=== PATIENT | female | born 1980 ===

== ENCOUNTER 2017-02-25 16:53 | Observation (INO) | payer BC ==
[2017-02-25 17:12] VITALS: TEMP 98.5; BMI 25.4
--- NOTE | 2017-02-25 17:37 | ED PDOC ---
"Arrival/HPI - General Chief Complaint: Abdominal Pain Time Seen by Provider: 02/25/17 16:54 Historian: Patient - History of Present Illness Narrative History of Present Illness (Text): 02/25/17 17:24 A 36 year old female, whose past medical history includes Kidney disease (does not take any medication), is sent from [facility] for right lower suprapubic and lower quadrant pain. Patient reports the pain has been presents for the past week but within the last 24 hour it has worsened. Pain shoots straight back to the back. Patient mentions 2 episodes of diarrhea but states it might be due to eating cheese because she has Lactose Intolerance. She notes some nausea but denies any vomiting, appetite change, or other complaints at this time. PMD: Dr. Jesus WEINERN: Dr. Galaviz Time/Duration: 1 week Symptom Onset: Gradual Symptom Course: Worsening Quality: Other Activities at Onset: Rest Context: Home Past Medical History - Provider Review Nursing Documentation Reviewed: Yes - Cardiac Hx Cardiac Disorders: No - Pulmonary Hx Respiratory Disorders: No - Neurological Hx Neurological Disorder: No - HEENT Hx HEENT Disorder: No - Renal Hx Renal Disorder: Yes Other/Comment: kidney disease - Endocrine/Metabolic Hx Endocrine Disorders: No - Hematological/Oncological Hx Blood Disorders: No - Integumentary Hx Dermatological Disorder: No - Musculoskeletal/Rheumatological Hx Musculoskeletal Disorders: No - Gastrointestinal Hx Gastrointestinal Disorders: No - Psychiatric Hx Substance Use: No - Surgical History Hx Tonsillectomy: Yes - Anesthesia Hx Anesthesia: Yes Hx Anesthesia Reactions: No Hx Malignant Hyperthermia: No Family/Social History - Physician Review Nursing Documentation Reviewed: Yes Family/Social History: Unknown Family HX Smoking Status: Never Smoked Hx Alcohol Use: No Hx Substance Use: No Allergies/Home Meds Allergies/Adverse Reactions: Allergies No Known Allergies Allergy (Verified 02/25/17 17:12) Review of Systems - Physician Review All systems were reviewed & negative as marked: Yes - Review of Systems Constitutional: absent: Fevers Gastrointestinal: Diarrhea, Nausea, Other (right suprapubic pain). absent: Vomiting Genitourinary Female: absent: Dysuria, Frequency, Hematuria, Urine Output Changes, Vaginal Bleeding, Vaginal Discharge Musculoskeletal: Back Pain Physical Exam Vital Signs Reviewed: Yes Vital Signs Temp Pulse Resp BP Pulse Ox 02/25/17 21:41 60 16 106/68 100 02/25/17 19:38 60 116/73 100 02/25/17 17:04 98.5 F 77 18 113/70 99 Temperature: Afebrile Blood Pressure: Normal Pulse: Regular Respiratory Rate: Normal Appearance: Positive for: Well-Appearing, Non-Toxic, Comfortable Pain Distress: None Mental Status: Positive for: Alert and Oriented X 3 - Systems Exam Head: Present: Atraumatic, Normocephalic Pupils: Present: PERRL Extroacular Muscles: Present: EOMI Conjunctiva: Present: Normal Mouth: Present: Moist Mucous Membranes Neck: Present: Normal Range of Motion Respiratory/Chest: Present: Clear to Auscultation, Good Air Exchange. No: Respiratory Distress, Accessory Muscle Use Cardiovascular: Present: Regular Rate and Rhythm, Normal S1, S2. No: Murmurs Abdomen: Present: Tenderness (right suprapubic and lower quadrant tenderness with palpation), Normal Bowel Sounds. No: Distention, Peritoneal Signs, Rebound , Guarding Genitourinary/Pelvic Exam: Present: Normal External Genitalia, Adenexal Tenderness (mild right adenexal tenderness), Other (Female wrapper counter (Scribe - Dimpal Carrillo) present). No: Vaginal Discharge, Vaginal Bleeding, Adenexal Mass Back: Present: Normal Inspection Upper Extremity: Present: Normal Inspection. No: Cyanosis, Edema Lower Extremity: Present: Normal Inspection. No: Edema Neurological: Present: GCS=15, CN II-XII Intact, Speech Normal Skin: Present: Warm, Dry, Normal Color. No: Rashes Psychiatric: Present: Alert, Oriented x 3, Normal Insight, Normal Concentration Medical Decision Making ED Course and Treatment: 02/25/17 17:24 Impression: A 36 year old female with right lower quadrant and suprapubic pain. On physical examination patient has right lower quadrant and suprapubic tenderness with palpation. On examination patient has mild adnexal tenderness. Differential Diagnosis include but are not limited to: ovarian cyst vs. Plan: -- Transvaginal ultrasound -- Labs -- Urinalysis -- IV Fluids -- Reassess and disposition Progress Notes: - Lab Interpretations Lab Results: 02/25/17 18:05 02/25/17 18:05 Lab Results 02/25/17 18:05: Sodium 139, Potassium 4.1, Chloride 105, Carbon Dioxide 26, Anion Gap 12, BUN 20, Creatinine 0.8, Est GFR ( Amer) > 60, Est GFR (Non- Af Amer) > 60, Random Glucose 87, Calcium 9.6, Magnesium 2.2, Total Bilirubin 0.5, Direct Bilirubin 0.2, AST 25, ALT 30, Alkaline Phosphatase 64, Total Protein 7.1, Albumin 4.2, Globulin 2.9, Albumin/Globulin Ratio 1.4, Lipase 67 02/25/17 18:05: WBC 8.8, RBC 4.83, Hgb 13.8, Hct 41.7, MCV 86.3, MCH 28.6, MCHC 33.1, RDW 13.1, Plt Count 231, MPV 11.7 H, Gran % 52.7, Lymph % (Auto) 36.4 H, Cannon % (Auto) 5.8, Eos % (Auto) 4.8, Baso % (Auto) 0.3, Gran # 4.64, Lymph # 3.2 , Cannon # 0.5, Eos # 0.4, Baso # 0.03 02/25/17 17:40: Urine Color Yellow, Urine Appearance Clear, Urine pH 6.5, Ur Specific Mobile 1.020, Urine Protein Negative, Urine Glucose (UA) Negative, Urine Ketones Trace H, Urine Blood Negative, Urine Nitrate Negative, Urine Bilirubin Negative, Urine Urobilinogen 0.2, Ur Leukocyte Esterase Negative, Urine HCG, Qual Negative - RAD Interpretation Radiology Orders: 02/25/17 17:42 TRANSVAGINAL [US] Stat 02/25/17 19:34 ABD & PELVIS PO CONTRAST ONLY [CT] Stat - Medication Orders Current Medication Orders: Discontinued Medications Acetaminophen (Tylenol 325mg Tab) 975 mg PO STAT STA Stop: 02/25/17 21:47 Last Admin: 02/25/17 21:58 Dose: 975 mg Sodium Chloride (Sodium Chloride 0.9%) 1,000 mls @ 999 mls/hr IV .Q1H1M STA Stop: 02/25/17 18:44 Last Admin: 02/25/17 18:07 Dose: 999 mls/hr Iohexol (Omnipaque 240 (50 Ml)) Confirm Administered Dose 50 ml .ROUTE .STK-MED ONE Stop: 02/25/17 19:14 Iohexol (Omnipaque 350 100 Ml) Confirm Administered Dose 350 mg .ROUTE .STK-MED ONE Stop: 02/25/17 19:14 Ketorolac Tromethamine (Toradol) 30 mg IVP STAT STA Stop: 02/25/17 19:24 Last Admin: 02/25/17 19:34 Dose: Not Given Non-Admin Reason: Patient Refused ED OBSERVATION Discharge: Yes Date of observation admission: 02/25/17 Time of observation admission: 17:35 - Observation admission statement Patient is being placed in observation because:: She has abdominal pain and will need to be observed for further workup and determination of diagnosis and treatment. - Goals of Observation Goals of observation are:: Discern diagnosis, improve symptoms, and determine disposition. - Progress Note Progress Note: 02/25/17 18:50 Patient is in ultrasound. 02/25/17 19:30 Toradol was ordered for patient, but patient says she cannot take a nsaid due to having minimal change renal disease. Sono results: FINDINGS: Uterus/cervix: Nabothian cyst noted in the cervix. Endometrial thickness measures up to 1 cm. No myometrial mass. Right ovary: Normal in size. Vascular flow is present. Free fluid is noted in the adnexal region Left ovary: Normal in size. Vascular flow is present.Free fluid is noted in the adnexal region Free fluid: See above. IMPRESSION: Normal sized ovaries with vascular flow. Small amount of free fluid in bilateral adnexa regions, right greater than left. Correlate clinically 02/25/17 19:34 CT changed to oral contrast only to avoid iv contrast for her renal disease. 02/25/17 20:30 Results of sono discussed with patient. Free fluid may be related to possible recent cyst rupture, but will still need to rule out appendicitis. Patient appears comfortable. 02/25/17 21:47 Patient is more uncomfortable again. Will give tylenol. CT abd/pelvis is pending. 02/25/17 22:54 CT scan results: FINDINGS: Lower thorax: <No significant pleural effusions.> ABDOMEN: Liver: Unremarkable. Gallbladder and bile ducts: Unremarkable. No calcified stones. No ductal dilation. Pancreas: Unremarkable. No ductal dilation. Spleen: Unremarkable. No splenomegaly. Adrenals: Unremarkable. No mass. Kidneys and ureters: 2 mm left nephrolithiasis. No hydronephrosis. Stomach and bowel: Unremarkable. No dilated bowel loops. Appendix: No findings to suggest acute appendicitis. PELVIS: Bladder: Unremarkable. No stones. Reproductive: Unremarkable as visualized. KALE GONZALES | Preliminary Radiology Report MAIL HANDLER EQUIPMENT OPERATOR (QA) DISCREPANCY? If there is a discrepancy between the preliminary and final interpretation, please notify [facility] via [email or web address]. If you do not have access to our QA portal, call our QA team at [phone] CONFIDENTIALITY STATEMENT This report is intended only for the use of the referring physician, and only in accordance with law, If you received this in error, call [phone] Page 2 of 2 ABDOMEN and PELVIS: Intraperitoneal space: Unremarkable. No free air. No significant fluid collection. Bones/joints: No acute fracture. No dislocation. Soft tissues: Unremarkable. Vasculature: Unremarkable. No abdominal aortic aneurysm. Lymph nodes: Unremarkable. No enlarged lymph nodes. IMPRESSION: 2 mm left nephrolithiasis. No hydronephrosis. 02/25/17 22:56 Findings of renal stone is much more likely incidental. Between CT a/p and sono , free fluid is the only significant finding, more likely due to ruptured cyst. 02/25/17 23:12 Patient is well-appearing and may be discharged and has been instructed to follow up with her manager investigations. - Scribe Statement The provider has reviewed the documentation as recorded by the Raul Carrillo Provider Scribe Attestation: All medical record entries made by the Scribe were at my direction and personally dictated by me. I have reviewed the chart and agree that the record accurately reflects my personal performance of the history, physical exam, medical decision making, and the department course for this patient. I have also personally directed, reviewed, and agree with the discharge instructions and disposition. Disposition/Present on Arrival - Present on Arrival Any Indicators Present on Arrival: No History of DVT/PE: No History of Uncontrolled Diabetes: No Urinary Catheter: No History of Decub. Ulcer: No History Surgical Site Infection Following: None - Disposition Have Diagnosis and Disposition been Completed?: Yes Diagnosis: Abdominal pain Disposition: HOME/ ROUTINE Disposition Time: 17:35 Patient Plan: Discharge Condition: GOOD Additional Instructions: Drink plenty of fluids. Tylenol for pain. If pain is uncontrolled with tylenol , you may take tramadol as prescribed and follow up with your primary care doctor and manager investigations. Return to the emergency department if any new concerning symptoms. Referrals: Rosalino Galaviz MD [Staff Provider] - Follow up with primary"
[2017-02-25] MEDS ORDERED: Sodium Chloride 0.9% 1,000 ML IV STA (17:44)
[2017-02-25 18:01] LABS: PH,URINE 6.5 (4.7-8.0); URINE BILIRUBIN NEGATIVE (NEGATIVE); URINE BLOOD NEGATIVE (NEGATIVE); URINE GLUCOSE (UA) NEGATIVE (NEGATIVE); URINE KETONE TRACE mg/dL (NEGATIVE); URINE LEUKOCYTE ESTERASE NEGATIVE Leu/uL (NEGATIVE); URINE PROTEIN NEGATIVE mg/dL (<30 mg/dL); URINE UROBILINOGEN 0.2 E.U./dL (<1 E.U./dL)
[2017-02-25 18:06] LABS: URINE APPEARANCE CLEAR (CLEAR); URINE COLOR YELLOW (YELLOW)
[2017-02-25 18:17] LABS: ADD MANUAL DIFF? NO
[2017-02-25 18:31] LABS: BASO # 0.03 K/mm3 (0.0-2.0); BASO % 0.3 % (0.0-3.0); EOS # 0.4 (0.0-0.7); EOS % 4.8 % (1.5-5.0); GRAN # 4.64 (1.4-6.5); GRAN % 52.7 % (50.0-68.0); HEMATOCRIT 41.7 % (36.0-48.0); LYMPH # 3.2 (1.2-3.4); LYMPH % 36.4 % (22.0-35.0); MEAN CELL VOLUME 86.3 fL (80.0-105.0); MEAN CORPUSCULAR HEMOGLOBIN 28.6 pg (25.0-35.0); MEAN CORPUSCULAR HGB CONC 33.1 g/dl (31.0-37.0); MEAN PLATELET VOLUME 11.7 fl (7.0-11.0); MONO # 0.5 (0.1-0.6); MONO % 5.8 % (1.0-6.0); PLATELET COUNT 231 10^3/uL (120.0-450.0); RED CELL DISTRIBUTION WIDTH 13.1 % (11.5-14.5); WHITE BLOOD COUNT 8.8 10^3/ul (4.5-11.0)
[2017-02-25 18:35] LABS: ALB/GLOB RATIO 1.4 (1.1-1.8); ALKALINE PHOSPHATASE 64 U/L (38-133); ALT/SGPT 30 U/L (7-56); AST/SGOT 25 U/L (15-39); BILIRUBIN,DIRECT 0.2 mg/dL (0.0-0.4); BILIRUBIN,TOTAL 0.5 mg/dL (0.2-1.3); BLOOD UREA NITROGEN 20 mg/dL (7-21); CALCIUM 9.6 mg/dL (8.4-10.5); CARBON DIOXIDE 26 mmol/L (21-33); CHLORIDE 105 mmol/L (98-107); GFR AFRICAN-AMERICAN > 60; GLUCOSE,RANDOM 87 mg/dL (70-110); LIPASE 67 U/L (23-300); MAGNESIUM 2.2 mg/dL (1.7-2.2); POTASSIUM 4.1 mmol/L (3.6-5.0); SODIUM 139 mmol/L (132-148); TOTAL PROTEIN 7.1 g/dL (5.8-8.3)
[2017-02-25] MEDS ORDERED: Iohexol 350 MG/100 ML VIAL ONE (19:13)
[2017-02-25] MEDS ORDERED: Iohexol 240 (50 ml) ONE (19:13)
[2017-02-25 21:42] VITALS: RESP 16
[2017-02-25 23:19] VITALS: BP 109/70; PULSE 62; O2SAT 98
--- NOTE | 2017-02-26 08:26 | CT ---
PROCEDURE: CT Abdomen and Pelvis without intravenous contrast HISTORY: RLQ abd pain - r/o appendicitis COMPARISON: None. TECHNIQUE: Technique. Contrast Dose: Radiation dose: Total exam DLP = 402 mGy-cm. This CT exam was performed using one or more of the following dose reduction techniques: Automated exposure control, adjustment of the mA and/or kV according to patient size, and/or use of iterative reconstruction technique. FINDINGS: LOWER THORAX: Unremarkable. LIVER: Unremarkable. No gross lesion or ductal dilatation. GALLBLADDER AND BILE DUCTS: Unremarkable. PANCREAS: Unremarkable. No gross lesion or ductal dilatation. SPLEEN: Unremarkable. ADRENALS: Unremarkable. No mass. KIDNEYS AND URETERS: 2 millimeter left nephrolithiasis.. No hydronephrosis. No solid mass. VASCULATURE: Unremarkable. No aortic aneurysm. BOWEL: Unremarkable. No obstruction. No gross mural thickening. APPENDIX: Unremarkable. Normal appendix. PERITONEUM: Unremarkable. No free fluid. No free air. LYMPH NODES: Unremarkable. No enlarged lymph nodes. BLADDER: Unremarkable. REPRODUCTIVE: Unremarkable. BONES: No acute fracture. OTHER FINDINGS: None. IMPRESSION: 2 millimeter left nephrolithiasis. No hydronephrosis.
--- NOTE | 2017-02-26 08:36 | US ---
HISTORY: R adnexal pain - r/o ovarian torsion COMPARISON: None available. TECHNIQUE: Transvaginal pelvic ultrasound was performed. FINDINGS: UTERUS: Measures 8.0 x 4.3 x 4.9 cm. The uterus is anteverted, normal in size and there is normal myometrial echotexture. There is a 1.5 x 1.9 x 1.8 cm intramural fibroid in the mid body along the posterior wall. ENDOMETRIUM: Measures 10 mm in diameter. Unremarkable. CERVIX: There is a nabothian cyst in the cervix. RIGHT OVARY: Measures 4.3 x 2.3 x 3.6 cm. No solid mass. Normal flow. LEFT OVARY: Measures 4.5 x 2.6 x 3.3 cm. No solid mass. Normal flow. FREE FLUID: There is a small amount of free fluid in the cul de sac. OTHER FINDINGS: None. IMPRESSION: 1. 1.5 x 1.9 x 1.8 cm intramural fibroid in the midbody of the posterior wall of the uterus. 2. No evidence of ovarian cyst, mass or torsion. 3. Small amount of free fluid in the pelvis. A preliminary report was provided by [employer] services.
== END 2017-02-25 23:13 | disposition home or self-care (01) ==
LOC: ED 16:53 → EROBSV 17:35
PROVIDERS: ADMIT Emergency Medicine; ATTEND Emergency Medicine
DX: R10.9 Unspecified abdominal pain (principal); N28.9 Disorder of kidney and ureter, unspecified
CPT/HCPCS: 74176; 76830; 80053; 81003; 82248; 83690; 83735; 84703; 85025; 87086; 87491; 87591; 96360; 99284; G0378; J7040; Q9966